=== PATIENT | male | born 1950 | race African-American/Black ===

== ENCOUNTER 2017-07-04 09:31 | Inpatient (IN) | payer MEDICARE, OTHER ==
[~2017-07-04] VITALS: Ht 170.2 cm; Wt 73.2 kg
--- NOTE | ~2017-07-04 | US77 ---
[facility] A Service of [facility] RADIOLOGY TEXT RESULTS PATIENT: SAMPSON HALLMAN LOCATION: [place] [address] : [birth year] UNIT #: [id number] AGE: [address]: CARMEN JAVED V SEX: M ORDER DR: [id number] [facility] [address] [facility]. [place], [place] [address] [id number] I MR#: [id number] Acc #: [id number] NAME: SAMPSON HALLMAN. : 1950 SEX: M STUDY DATE/TIME: 07/05/2017 8:00 UNIT: [facility] ROOM: [facility] STUDY DESCRIPTION: US Kidney Bilateral Complete Attending Physician: Carmen Javed M.D. Ordering Physician: Ed Doctor [id number] [facility] Primary Care Physician: Generic Doctor Not In System MEDICAL IMAGING REPORT This report is preliminary unless electronic signature is present EXAM Renal ultrasound 07/05/2017 HISTORY Acute renal insufficiency, abnormal renal function tests today with elevated BUN of 76, elevated creatinine of 7.4, abnormally low GFR of 7.9. Hypertension and low back pain for 3 weeks. Pain with urination for 3 weeks. FINDINGS The right kidney measures 8.6 cm, while the left kidney measures 7.8 cm in longitudinal dimensions. There is no evidence of hydronephrosis or nephrolithiasis. No cystic or solid mass lesions were seen on either kidney. There is normal renal cortical echogenicity. Images of the bladder are normal. IMPRESSION 1. The kidneys are somewhat small bilaterally. There is no evidence of hydronephrosis or nephrolithiasis. 2. Images of the bladder are normal. Dictated by... Bravo Harper M.D. THIS IS AN ELECTRONICALLY VERIFIED REPORT Bravo Harper M.D. at 07/06/2017 7:32 AM TEODORA/janet TD: 07/05/2017 11:44 JOB #: [id number] MEDICAL IMAGING REPORT [facility] A Service of [facility] RADIOLOGY TEXT RESULTS PATIENT: SAMPSON HALLMAN LOCATION: [place] [address]- : [birth year] UNIT #: [id number] AGE: [address]: CARMEN JAVED V SEX: M ORDER DR: Page 1 of 1 COPY
--- NOTE | ~2017-07-04 | DS ---
Unit #: [id number] #: [id number] Patient: SAMPSON HALLMAN [id number] [address] [address] [id number] I MR#: [id number] NAME: SAMPSON HALLMAN ROOM: [facility] Age: 67 Sex: M Admission Date: 07/04/2017 : 1950 Discharge Date: 07/07/2017 Attending Physician: Gordon Javed M.D. Primary Care Physician: Generic Doctor Not In System DISCHARGE SUMMARY PERTINENT HISTORY AND HOSPITAL COURSE The patient is a 67-year-old man who presented to his primary care physician's office with symptoms of fatigue. His labs were abnormal with a creatinine of 7.4 and a BUN of 76. The patient was sent to the emergency room for further evaluation. During his hospitalization, his lisinopril was discontinued and the patient was aggressively hydrated. The patient's creatinine went from 7.4 on admission to 1.9 at discharge. Acute renal failure was likely secondary to acute kidney injury from lisinopril, which will be discontinued. His hypertension will be managed with managed with amlodipine 10 mg at bedtime. At discharge, the patient is currently comfortable. Vitals are stable. DISCHARGE MEDICATIONS Amlodipine 10 mg p.o. once nightly at bedtime. DISCHARGE INSTRUCTIONS Patient to follow up with primary care physician. Dictated by... Oleksandr Garcia/rosana TD: 07/08/2017 09:49 JOB #: [id number] DISCHARGE SUMMARY Page 1 of 1 X X DISCHARGE SUMMARY
--- NOTE | ~2017-07-04 | CO ---
Unit #: [id number] #: [id number] Patient: SAMPSON HALLMAN [id number] [address] [address] [id number] I MR#: [id number] NAME: SAMPSON HALLMAN. ROOM: 55 Age: 67 Sex: M Admission Date: 07/04/2017 : 1950 Attending Physician: Gordon Javed M.D. Primary Care Physician: Generic Doctor Not In System Consultation Date: 07/04/2017 CONSULTATION REPORT REASON FOR CONSULTATION Elevated creatinine level. HISTORY OF PRESENT ILLNESS The patient is a 67-year-old male with known history of hypertension; chronic kidney disease, stage 3, creatinine baseline around 1.7; proteinuria in the past, 2 to 3 g, with workup including ANCA, MPO, PR3, K/L ratio normal. The patient seen in the office and noted to have a creatinine level of 4.9 and asked to come to the emergency room and noted to have a creatinine level of 7.4 with a BUN of 76. The patient reports diarrhea, watery in nature, 3 to 4 times a day for the last 3 to 5 days. No noted hypotension. No vomiting. Mild abdominal pain. No bloody bowel movements. No hematuria. The patient does not report any use of NSAIDs. No recent IV contrast. The patient's home medications include lisinopril. Previous history of prostate CA. The patient previously had an unremarkable colonoscopy. PAST MEDICAL HISTORY Significant for hypertension; anemia; prostate cancer; and chronic kidney disease, stage 3. ALLERGIES No known drug allergies. MEDICATIONS Home medications are listed as lisinopril 20 mg daily. PAST SURGICAL HISTORY Significant for right hemicolectomy, hernia repair, and hip surgery. FAMILY HISTORY Significant for hypertension. No end-stage renal disease. SOCIAL HISTORY The patient drinks. No drug use. REVIEW OF SYSTEMS CVS: No chest pain. RESPIRATORY: No cough or expectoration. GI: As above. : No hematuria. No dysuria. PHYSICAL EXAMINATION GENERAL: The patient is awake, alert, and oriented. Unit #: [id number] #: [id number] Patient: SAMPSON HALLMAN VITAL SIGNS: Temperature is 97.9, heart rate is 99 per minute, blood pressure is 140/90, and saturation is 98%. HEENT: Head is atraumatic. Extraocular movements are intact. NECK: Supple. There is no elevation of JVD. CHEST: Clear. Air entry is equal bilaterally. Breathing is vesicular in nature. HEART: S1 and S2 audible. There is no S3, no S4. ABDOMEN: Soft. There is no organomegaly. No guarding. No rigidity. No rebound tenderness. There is no edema. ROLLER REPAIRER: Motor system is intact. Cerebellar system is intact. DIAGNOSTIC STUDIES LABORATORY RESULTS: Sodium 125, potassium 4, chloride 98, CO2 of 15, BUN 76, creatinine 7.4, glucose 107, and calcium 8.8. WBC 6, H and H 13.6 and 41.4 with a platelet count of 367. Urine sodium is 14. IMPRESSION AND PLAN 1. Acute kidney injury, possible acute tubular necrosis exacerbated by lisinopril and diarrhea. Check urinary sediment. Previous history of proteinuria. We will check hepatitis profile, MADINA, anti-double stranded DNA, and consider renal biopsy. Follow renal function after hydration. Check renal ultrasound with history of prostate cancer. 2. Non-anion gap metabolic acidosis. Previous history of acidosis. Etiology unclear. Check ABG and urinalysis possibly secondary to diarrhea and acute kidney injury. 3. Hyponatremia, likely hemodynamic related stimulation of ADH. Monitor on current hypertonic bicarb. 4. Hypertension. 5. History of prostate cancer. 6. History of hemicolectomy. Dictated by... Jonnie Lemon M.D. RA/arielle TD: 07/05/2017 11:10 JOB #: [id number] CONSULTATION REPORT Page 1 of 1 X Jonnie Lemon MD X CONSULTATION REPORT
--- NOTE | ~2017-07-04 | EKG ---
PATIENT: SAMPSON HALLMAN UNIT #: [id number] Ventricular Rate: 75 BPM Atrial Rate: 75 BPM P-R Interval: 174 ms QRS Duration: 102 ms Q-T Interval: 394 ms QTC Calculation(Bezet): 439 ms P Beltrami: 40 degrees Calculated R Beltrami: -64 degrees Calculated T Beltrami: 50 degrees Diagnosis Line: Normal sinus rhythm Diagnosis Line: Left axis deviation Diagnosis Line: Abnormal ECG Diagnosis Line: When compared with ECG of 10-MAR-2013 19:01, Diagnosis Line: No significant change was found Diagnosis Line: Confirmed by REID MYLES MD ([id number]) on 07/04/2017 Diagnosis Line: 3:16:21 PM INTERPRETING MD: SHAR LIVINGSTON
--- NOTE | ~2017-07-04 | HP ---
Unit #: [id number] #: [id number] Patient: SAMPSON HALLMAN [id number] [address] [address] [id number] I MR#: [id number] NAME: SAMPSON HALLMAN. ROOM: 55 Age: 67 Sex: M Admission Date: 07/04/2017 : 1950 Attending Physician: Noemi Lemon M.D. HISTORY AND PHYSICAL CHIEF COMPLAINT Abnormal labs. HISTORY OF PRESENT ILLNESS The patient is a 67-year-old male with a history of hypertension, prior TIA, prostate cancer, status post radiation seeds, and hemicolectomy for large tubulovillous adenoma back in 2005, presented to the emergency room with abnormal labs. The patient went to see his primary care physician for fatigue. The patient had abnormal labs with a creatinine of 7.4 and BUN of 76. The patient is being admitted for the above reasons. The patient denies any nausea, vomiting, chest pain, or diaphoresis. PAST MEDICAL HISTORY 1. Hypertension. 2. Transient ischemic attack. 3. Prior pneumothorax requiring chest tube placement. 4. Eye surgery. 5. Anemia. 6. Prostate cancer. 7. Renal insufficiency. PAST SURGICAL HISTORY 1. Right hemicolectomy. 2. Hernia repair. 3. Hip surgery. ALLERGIES None. HOME MEDICATIONS 1. Enalapril. 2. Lisinopril. FAMILY HISTORY Hypertension and stroke. SOCIAL HISTORY He smokes a half a pack per day, uses alcohol occasionally, and denies any illicit drug abuse. REVIEW OF SYSTEMS Positive for fatigue and weakness. Denies any chest pain, denies any nausea or vomiting, and denies any headache. All other systems have been reviewed and are none except as mentioned in the HPI. Unit #: [id number] #: [id number] Patient: SAMPSON HALLMAN PHYSICAL EXAMINATION GENERAL: Patient is lying in bed not in acute distress. VITAL SIGNS: Temperature 97.7, pulse 86, respiratory rate 16, blood pressure 139/77, and saturating 100% on room air. HEENT: Head atraumatic, normocephalic. Pupils equal, round, and reactive to light and accommodation. Extraocular movements are intact. Dry mucous membranes. NECK: Supple. LUNGS: Decreased air entry at the bases. HEART: Regular rate and rhythm. ABDOMEN: Soft. Positive bowel sounds. EXTREMITIES: No cyanosis, no clubbing. NEUROLOGIC: Alert, awake, and oriented. No gross focal motor deficit. DIAGNOSTIC STUDIES LABORATORY: WBC 6, hemoglobin 13.6, hematocrit 41.4, and platelets 367,000. Sodium 125, potassium 4, chloride 98, bicarb 15, glucose 107, BUN 76, creatinine 7.4, and calcium 8.8. Urine sodium is 14. ASSESSMENT 1. Acute kidney injury. 2. Hypertension. PLAN Admit the patient to inpatient with telemetry. Continue with IV fluids of half normal saline with 2 amps of bicarbonate. Continue to hold the nephrotoxic agents and hold the enalapril. A Renal consult has been done with Dr. Dimas's group. Follow with workup for the acute kidney injury, and further recommendations will follow as more lab results are available. Dictated by Oleksandr Spivey TD: 07/04/2017 17:56 JOB #: [id number] HISTORY AND PHYSICAL Page 1 of 1 X NOEMI LEMON MD X HISTORY AND PHYSICAL
--- NOTE | ~2017-07-04 | CR63 ---
[facility] A Service of [facility] RADIOLOGY TEXT RESULTS PATIENT: SAMPSON HALLMAN LOCATION: [place] [address] : [birth year] UNIT #: [id number] AGE: [address]: CARMEN DE JESUS V SEX: M ORDER DR: [id number] [facility] [address] [facility]. [place], [place] [address] [id number] I MR#: [id number] Acc #: [id number] NAME: SAMPSON HALLMAN : 1950 SEX: M STUDY DATE/TIME: 07/05/2017 7:26 UNIT: [facility] ROOM: [facility] STUDY DESCRIPTION: CR Chest 2 View Attending Physician: Carmen De Jesus M.D. Ordering Physician: Teja Cristina M.D. Primary Care Physician: Vandana Not Listed MEDICAL IMAGING REPORT This report is preliminary unless electronic signature is present EXAM Chest, PA and lateral, 07/05/2017. HISTORY Shortness of breath for 2 days. Benign essential hypertension. Smoking history for 40 years. FINDINGS The heart is normal in size. Surgical chain sutures are seen in the medial right lung apex. The lungs are otherwise clear. There are no pleural effusions. IMPRESSION Postsurgical changes at the right lung apex. No active pulmonary disease. Dictated by... Bravo Harper M.D. THIS IS AN ELECTRONICALLY VERIFIED REPORT Bravo Harper M.D. at 07/06/2017 7:32 AM TEODORA/krista TD: 07/05/2017 11:33 JOB #: [id number] MEDICAL IMAGING REPORT Page 1 of 1 COPY
--- NOTE | ~2017-07-04 | CR72 ---
[facility] A Service of [facility] RADIOLOGY TEXT RESULTS PATIENT: SAMPSON HALLMAN LOCATION: [place] [address] : [birth year] UNIT #: [id number] AGE: [address]: RODRICK DE JESUSUJ V SEX: M ORDER DR: [id number] [facility] [address] [facility] [place], [place] [address] [id number] I MR#: [id number] Acc #: [id number] NAME: SAMPSON HALLMAN. : 1950 SEX: M STUDY DATE/TIME: 07/04/2017 10:12 UNIT: [facility] ROOM: [facility] STUDY DESCRIPTION: CR Chest Single View Portable Attending Physician: Mary Kay Lemon M.D. Ordering Physician: Brian Arnold M.D. Primary Care Physician: Generic Doctor Not In System MEDICAL IMAGING REPORT This report is preliminary unless electronic signature is present EXAM Chest x-ray portable HISTORY Patient had abnormal blood work on Wednesday at primary care doctor's office and was called by the primary care doctor and told to go to the emergency room. The patient has a history of essential hypertension and smoking for 40-plus years. He is also short of air. History of prostate cancer. COMMENT Single frontal portable view of the chest timed 10:12 on 07/04/2017 is reviewed. Comparison study is from 02/19/2015. Cardiac silhouette size is borderline. The lungs are clear. There is no pleural effusion. There is no pneumothorax. There are surgical clips at the right apex. IMPRESSION Borderline heart size, otherwise no active disease. Surgical clips right apex. Dictated by... Genesis Henderson M.D. THIS IS AN ELECTRONICALLY VERIFIED REPORT Genesis Henderson M.D. at 07/05/2017 4:52 PM PRICE/josse TD: 07/05/2017 00:36 JOB #: [id number] MEDICAL IMAGING REPORT [facility] A Service of [facility] RADIOLOGY TEXT RESULTS PATIENT: SAMPSON HALLMAN LOCATION: [place] [address]- : [birth year] UNIT #: [id number] AGE: [address]: CARMEN DE JESUS V SEX: M ORDER DR: Page 1 of 1 COPY
[~2017-07-04 09:31] MED LIST: ATENOLOL PO; BENAZEPRIL HCL40 MG PO; FERREX 150 PLU1 EACH PO; FERRO-TIME325 MG PO; FLOMAX0.4 M1 PO; HCTZ PO; KCL PO; LOTREL PO; NEXIUM PO; NORVASC10 MG PO; OMEPRAZOLE40 M1 PO; PLAVIX PO; SIMVASTATIN20 MG PO; TYLOX 5/500 CAP1 CAP PO; VITAMIN D; ZOCOR PO
[2017-07-04 10:47] LABS: BASOPHIL% 0.3 % (0-2.5); EOSINOPHIL# 0.3 X10e3 (0-0.7); EOSINOPHIL% 4.7 % (0.0-7.0); HEMATOCRIT 41.4 % (38.0-50.0); HEMOGLOBIN 13.6 gm/dL (13.0-16.0); LYMPHOCYTE# 0.7 X10e3 (1.0-3.5); LYMPHOCYTE% 11.9 % (17.0-45.0); MEAN CELL VOLUME 90.5 FL (83-96); MEAN CORPUSCULAR HEMOGLOBIN 29.7 PG (28-34); MEAN CORPUSCULAR HGB CONC 32.8 g/dL (30-36); MEAN PLATELET VOLUME 7.6 FL (6.5-11.5); MONOCYTE# 0.8 X10e3 (0-1.0); NEUTROPHIL# 4.2 X10e3 (1.5-7.1); NEUTROPHIL% 70.1 % (40-75); PLATELET COUNT 367 X10e3 (140-420); RED BLOOD COUNT 4.57 X10e (3.90-5.60)
[2017-07-04 11:04] LABS: DIFF IND YES
[2017-07-04 11:05] LABS: ANISOCYTOSIS SL; PLATELET ESTIMATE NORMAL (NORMAL)
[2017-07-04 11:11] LABS: BUN/CREATININE RATIO 10.27; CALCIUM SERUM 8.8 mg/dL (8.4-10.2); CREATININE SERUM 7.4 mg/dL (0.6-1.4); GLOM FILT RATE Estimated 7.9 mL/min (>60)
[2017-07-04] MEDS ORDERED: ENALAPRIL MALE2.5 MG PO (11:34)
[2017-07-04] MEDS ORDERED: LISINOPRIL10 MG PO (11:35)
[2017-07-04 16:04] LABS: MAGNESIUM 1.8 mg/dL (1.6-3.0); PHOSPHOROUS 5.3 mg/dL (2.5-4.6)
[2017-07-04 16:14] LABS: PROSTATE SPECIFIC AG DIAG 0.64 ng/ml (0.0-4.0)
[2017-07-04 16:41] LABS: ARTERIAL BLD GAS O2 SATURATION 94.2 % (90.0-100.0); ARTERIAL BLOOD GAS CARBOXY HB 1.2 %sat (0.0-9.0); ARTERIAL BLOOD GAS HCO3 13.6 mmol/L; ARTERIAL BLOOD GAS MET HB 0.7 %sat (0.0-2.0); ARTERIAL BLOOD GAS PO2 82.7 mmHg (80.0-100); ARTERIAL BLOOD GAS pH 7.295 (7.350-7.450)
[2017-07-04 16:44] LABS: ARTERIAL BLOOD GAS ALLEN TEST NORMAL; ARTERIAL BLOOD GAS ART SITE LEFT RADIAL; ARTERIAL DRAW? YES
[2017-07-04 16:55] LABS: URINE APPEARANCE CLEAR; URINE BILIRUBIN NEG (NEG); URINE BLOOD 1+ (NEG); URINE COLOR YELLOW; URINE GLUCOSE NEG (NEG); URINE KETONE NEG (NEG); URINE LEUKOCYTE ESTERASE NEG (NEG); URINE NITRATE NEG (NEG); URINE PROTEIN 1+ (NEG); URINE SPECIFIC GRAVITY 1.011 (1.003-1.035); URINE UROBILINOGEN 0.2 MG/DL (NEG)
[2017-07-04 16:58] LABS: U HYALINE CASTS AUWI 0-2 /[LPF]; URINE BACTERIA AUWI NEG (NEGATIVE); URINE SQUAMOUS EPITHELIAL CELL NONE SEEN /[HPF]; UWBCS1 AUWI 0-2 (0-5)
[2017-07-04 17:03] LABS: CREATININE,RANDOM URINE 135 mg/dL; TOTAL PROTEIN,RANDOM URINE 48 mg/dl (<10)
[2017-07-05 08:00] LABS: HEMATOCRIT 34.9 % (38.0-50.0); HEMOGLOBIN 11.7 gm/dL (13.0-16.0); MEAN CELL VOLUME 89.5 FL (83-96); MEAN CORPUSCULAR HEMOGLOBIN 29.9 PG (28-34); MEAN CORPUSCULAR HGB CONC 33.5 g/dL (30-36); MEAN PLATELET VOLUME 7.8 FL (6.5-11.5); RED BLOOD COUNT 3.9 X10e (3.90-5.60); RED CELL DISTRIBUTION WIDTH 18.6 % (11.0-15.5); WHITE BLOOD COUNT 5.7 X10e3 (4.0-10.5)
[2017-07-05 08:40] LABS: BUN/CREATININE RATIO 15.22; CALCIUM SERUM 8.6 mg/dL (8.4-10.2); GLOM FILT RATE Estimated 14.9 mL/min (>60); POTASSIUM 3.9 mmol/L (3.5-5.1)
[2017-07-05 08:42] LABS: CREATININE SERUM 4.4 mg/dL (0.6-1.4)
[2017-07-06 06:39] LABS: HEMATOCRIT 36.2 % (38.0-50.0); HEMOGLOBIN 11.6 gm/dL (13.0-16.0); MEAN CELL VOLUME 90.6 FL (83-96); MEAN PLATELET VOLUME 7.8 FL (6.5-11.5); RED BLOOD COUNT 3.99 X10e (3.90-5.60); RED CELL DISTRIBUTION WIDTH 18.3 % (11.0-15.5); WHITE BLOOD COUNT 4.9 X10e3 (4.0-10.5)
[2017-07-06 07:19] LABS: CALCIUM SERUM 8.6 mg/dL (8.4-10.2); CREATININE SERUM 2.5 mg/dL (0.6-1.4); GLOM FILT RATE Estimated 29.5 mL/min (>60); MAGNESIUM 1.5 mg/dL (1.6-3.0); PHOSPHOROUS 2.8 mg/dL (2.5-4.6); POTASSIUM 3.5 mmol/L (3.5-5.1)
[2017-07-06 15:12] LABS: BUN/CREATININE RATIO 16.25; CALCIUM SERUM 8.7 mg/dL (8.4-10.2); CREATININE SERUM 2.4 mg/dL (0.6-1.4); POTASSIUM 3.5 mmol/L (3.5-5.1)
[2017-07-07 06:36] LABS: BUN/CREATININE RATIO 17.36; CALCIUM SERUM 9.1 mg/dL (8.4-10.2); CREATININE SERUM 1.9 mg/dL (0.6-1.4); GLOM FILT RATE Estimated 41.1 mL/min (>60); POTASSIUM 4.5 mmol/L (3.5-5.1)
[2017-07-07] MEDS ORDERED: NORVASC10 MG PO (15:26)
[2017-07-08 22:36] LABS: ANA SCREEN Negative (Negative); HEP B SURFACE AG Nonreactive (Nonreactive); HEP C AB (HEPPAN) Nonreactive (Nonreactive); HEP C AB SIGNAL TO CUTOFF 0.03 ratio (<1.00)
== END 2017-07-07 16:08 | disposition home or self-care (01) | DRG 683 ==
LOC: CED 09:31 → CEDOF 11:55 → CED 11:55 → CEDOF 12:17 → CED 12:17 → C5B 13:14 → CEDOF 13:14 → C5B 16:18
PROVIDERS: Emergency Medicine; Internal Medicine; Internal Medicine Nephrology
DX: N17.9 Acute kidney failure, unspecified (principal); E87.2 Acidosis; E87.1 Hypo-osmolality and hyponatremia; Z86.73 Personal history of transient ischemic attack (TIA), and cerebral infarction without residual deficits; Z85.46 Personal history of malignant neoplasm of prostate; T46.4X5A Adverse effect of angiotensin-converting-enzyme inhibitors, initial encounter; I12.9 Hypertensive chronic kidney disease with stage 1 through stage 4 chronic kidney disease, or unspecified chronic kidney disease; N18.3 Chronic kidney disease, stage 3 (moderate); E87.6 Hypokalemia
CPT/HCPCS: 36600; 71010; 71020; 76770; 80048; 81003; 82570; 82803; 83516; 83735; 83883; 84100; 84153; 84156; 84300; 85025; 85027; 86038; 86039; 86225; 86803; 87040; 87340; 89190; 93005; 99291; J1650; J2405